=== PATIENT | male | born 1940 ===

== ENCOUNTER 2020-10-07 15:43 | Observation (INO) | payer MEDICARE ==
[~2020-10-07] VITALS: Ht 175.3 cm; Wt 101.7 kg
[2020-10-07] MEDS ORDERED: SODIUM CHLORIDE 0.9% 1,000ML IVBOLUS ONE (16:00)
[2020-10-07] MEDS ORDERED: SODIUM CHLORIDE FLUSH 10ML SYR IVF ONE (16:00)
[2020-10-07 16:31] LABS: BASOPHILS % (AUTO) 1 % (0-1); EOSINOPHILS % (AUTO) 5 % (1-7); LYMPHOCYTES % (AUTO) 13 % (22-44); MEAN CORPUSCULAR HEMOGLOBIN 30.2 pg (27.5-34.5); MEAN CORPUSCULAR HGB CONC 32.9 g/dL (33.2-36.2); MONOCYTES % (AUTO) 12 % (2-9); NEUTROPHILS % (AUTO) 70 % (42-75); PLATELET COUNT 212 x10^3/uL (130-400); RED BLOOD COUNT 4.49 x10^6/uL (4.38-5.82); RED CELL DISTRIBUTION WIDTH 14.5 % (9.4-14.8)
[2020-10-07 16:40] LABS: ALANINE AMINOTRANSFERASE 24 U/L (12-78); ALBUMIN 3.7 g/dL (3.4-5.0); ANION GAP 6 mmol/L (5-15); CALCIUM 8.7 mg/dL (8.5-10.1); CHLORIDE 111 mmol/L (98-107); CREATININE 2.81 mg/dL (0.7-1.3)
[2020-10-07 16:42] LABS: ALKALINE PHOSPHATASE 54 U/L (45-117); BILIRUBIN,TOTAL 0.7 mg/dL (0.2-1.0); TOTAL PROTEIN 7.2 g/dL (6.4-8.2)
[2020-10-07 17:40] VITALS: BP 110/56
[2020-10-07 19:59] VITALS: BP 100/61
[2020-10-07] MEDS ORDERED: DOCUSATE 100 MG CAPSULE PO PRN (20:00)
[2020-10-07] MEDS ORDERED: LIDODERM 5% PATCH TD PRN (20:00)
[2020-10-07] MEDS ORDERED: ACETAMINOPHEN 325 MG TABLET PO PRN (20:00)
[2020-10-07] MEDS: HEPARIN 5,000 UNITS/ML, 1ML SQ SCH (20:00)
[2020-10-07] MEDS ORDERED: LIDODERM REMOVE PATCH NOTE XX PRN (20:30)
[2020-10-07] MEDS: MELATONIN 5 MG TABLET PO PRN (22:13)
[2020-10-08 00:32] VITALS: BP 106/62
[2020-10-08] MEDS: HEPARIN 5,000 UNITS/ML, 1ML SQ SCH ×3 (01:42→20:00)
[2020-10-08 05:11] LABS: BASOPHILS % (AUTO) 0 % (0-1); EOSINOPHILS % (AUTO) 5 % (1-7); LYMPHOCYTES % (AUTO) 14 % (22-44); MEAN CORPUSCULAR HEMOGLOBIN 30.7 pg (27.5-34.5); MEAN CORPUSCULAR HGB CONC 33.5 g/dL (33.2-36.2); MEAN PLATELET VOLUME 8.1 fL (7.4-10.4); MONOCYTES % (AUTO) 11 % (2-9); NEUTROPHILS % (AUTO) 70 % (42-75); PLATELET COUNT 173 x10^3/uL (130-400); RED BLOOD COUNT 4.32 x10^6/uL (4.38-5.82); RED CELL DISTRIBUTION WIDTH 14.5 % (9.4-14.8)
[2020-10-08 05:21] LABS: ANION GAP 4 mmol/L (5-15); CALCIUM 8.2 mg/dL (8.5-10.1); CHLORIDE 112 mmol/L (98-107)
[2020-10-08 05:34] LABS: CREATININE 2.37 mg/dL (0.7-1.3)
[2020-10-08 06:26] VITALS: BP 131/67
[2020-10-08] MEDS ORDERED: SENNA 176 MG/5 ML ORAL SOL NG PRN (08:00)
[2020-10-08] MEDS ORDERED: SENNOSIDES 8.6 MG TABLET PO PRN (08:30)
[2020-10-08 09:34] LABS: TROPONIN I < 0.015 ng/mL (0.000-0.045)
[2020-10-08] MEDS ORDERED: ACETAMINOPHEN 325 MG TABLET PO PRN (12:00)
[2020-10-08 14:00] VITALS: BP 99/64
[2020-10-08 19:23] VITALS: BP 131/75
[2020-10-08] MEDS: MELATONIN 5 MG TABLET PO PRN (22:38)
[2020-10-09] MEDS: HEPARIN 5,000 UNITS/ML, 1ML SQ SCH ×2 (04:00→12:00)
[2020-10-09 05:22] LABS: CHLORIDE 112 mmol/L (98-107)
[2020-10-09 05:31] LABS: ANION GAP 5 mmol/L (5-15); CALCIUM 8.5 mg/dL (8.5-10.1); CREATININE 1.86 mg/dL (0.7-1.3)
[2020-10-09 06:56] VITALS: BP 145/80
[2020-10-09] MEDS ORDERED: SENN-99 PO (10:40)
== END 2020-10-09 13:57 | disposition home or self-care (01) ==
LOC: ED 16:50 → INTOOBSV 16:55 → 4WST 16:55 → UNDODISIN 10-09 13:57
PROVIDERS: ADMIT Internal Medicine; ATTEND Internal Medicine
DX: I95.89 Other hypotension (principal); I13.0 Hypertensive heart and chronic kidney disease with heart failure and stage 1 through stage 4 chronic kidney disease, or unspecified chronic kidney disease; I50.22 Chronic systolic (congestive) heart failure; N17.9 Acute kidney failure, unspecified; N18.9 Chronic kidney disease, unspecified; I49.9 Cardiac arrhythmia, unspecified; E03.9 Hypothyroidism, unspecified; N40.0 Benign prostatic hyperplasia without lower urinary tract symptoms; I25.10 Atherosclerotic heart disease of native coronary artery without angina pectoris; E16.2 Hypoglycemia, unspecified; E66.9 Obesity, unspecified; G47.30 Sleep apnea, unspecified; Z95.810 Presence of automatic (implantable) cardiac defibrillator; Z79.899 Other long term (current) drug therapy
CPT/HCPCS: 36415; 71045; 80048; 80053; 82330; 83036; 83605; 83735; 83880; 84443; 84484; 85025; 93005; 93306; 96360; 97161; 99285; G0378; J7030

== ENCOUNTER → 2020-12-08 | Outpatient (CLI) | payer MEDICARE ==
[~2020-12-08] MED LIST: REGADENOSON 0.4 MG/5 ML SYRINGE ONE; SENN-99 PO
== END | disposition home or self-care (01) ==
LOC: CFH 07:51
PROVIDERS: ATTEND Physician Assistant Medical
DX: I25.10 Atherosclerotic heart disease of native coronary artery without angina pectoris (principal); I25.5 Ischemic cardiomyopathy
CPT/HCPCS: 78452; 93017; A9502; J2785